=== PATIENT | female | born 1955 | race Caucasian/White ===

== ENCOUNTER 2024-12-14 20:25 | Emergency (ER) | payer OTHER ==
--- NOTE | 2024-12-14 20:44 | RAD REPORT ---
EXAM: CT Ct Stroke Brain Wo Cont HISTORY: STROKE ALERT COMPARISON: None TECHNIQUE: Multiple contiguous axial images were obtained for a CT of the brain without contrast. Sag ittal and coronal reformats were performed. One or more of the following dose reduction techniques were used: Automated exposure control, adjus tment of the mA and kV according to patient size, and iterative reconstruction. Unless otherwise specified, incidental findings do not require dedicated imaging follow-up. FINDINGS: No evidence of hydrocephalus, intracranial hemorrhage, or extra-axial fluid collection. Focus of encephalomalacia involving the peripheral right cerebellar folia. The brain is otherwise nor mal in morphology. The calvarium is intact. The visualized paranasal sinuses and mastoid air cells are essentially clear . IMPRESSION: Focus of encephalomalacia in the right peripheral cerebellar folia, suggesting remote ischemia. No ot her evidence of acute intracranial abnormality. THIS REPORT CONTAINS FINDINGS THAT MAY BE CRITICAL TO PATIENT CARE. The findings were verbally commun icated via telephone to Fredrick Oshea MD on 12/14/2024 8:41 PM.
[2024-12-14] MEDS ORDERED: LABETALOL 20 MG/4ML SYRINGE IV ONE (20:55)
[2024-12-14] MEDS ORDERED: TENECTEPLASE 50 MG/10 ML VIAL IV ONE (20:55)
--- NOTE | 2024-12-14 21:00 | RAD REPORT ---
EXAMINATION: CTA HEAD CLINICAL INDICATION: Female, 69 years old. weakness;Dizziness TECHNIQUE: Axial CT images were obtained through the head after intravenous contrast utilizing angiog raphic protocol with 3D post-processing (maximum intensity projection images, volume rendered images and/or shaded surface rendered images). One or more of the following dose reduction technique s were used: Automated exposure control, adjustment of the mA and/or kV according to patient size, and/or iterative reconstruction. Unless otherwise specified, incidental findings do not require dedic ated imaging follow-up. COMPARISON: Noncontrast head CT of the same day FINDINGS: ICA: The petrous, cavernous, and supraclinoid segments of the bilateral internal carotid arteries are normal. ANDRESSA: Anterior cerebral arteries are normal bilaterally. The anterior communicating artery is patent. MCA: Middle cerebral arteries are normal bilaterally. REPRINT SORTER: Posterior cerebral arteries are normal bilaterally. Vertebrobasilar: The vertebral arteries are patent. The basilar artery is normal in appearance. Right PICA is patent. Left PICA is not visualized, could be congenitally diminutive. 3D images confirm these findings. IMPRESSION: No evidence of large vessel occlusion or hemodynamically significant stenosis.
--- NOTE | 2024-12-14 21:11 | RAD REPORT ---
EXAMINATION: CT Neck Angio CLINICAL INDICATION: Female, 69 years old. [facility] MAIN weakness, dizziness, HTN Bed: TECHNIQUE: Axial CT images were obtained from the aortic arch to the skull base after intravenous con trast utilizing angiographic protocol. Multiplanar reformats, as well as 3D post-processing (maximum intensity projection images, volume rendered images and/or shaded surface rendered images) w ere generated and reviewed. One or more of the following dose reduction techniques were used: Automated exposure control, adjustment of the mA and/or kV according to patient size, and/or iterativ e reconstruction. Unless otherwise specified, incidental findings do not require dedicated imaging follow-up. COMPARISON: Noncontrast head CT of the same day FINDINGS: AORTA: The imaged aortic arch is normal. Normal three-vessel configuration of the arch. CCA: No artifact The common carotid arteries are patent and normal in caliber. ICA/ECA: Bilateral internal and external carotid arteries are patent. There is no significant interna l carotid artery stenosis. VERTEBRAL: The cervical vertebral arteries are patent to the skull base. Vertebral arteries are codom inant. SOFT TISSUE: No significant neck soft tissue abnormalities. The visualized lung apices are clear. 3D images confirm these findings. Anterior plating hardware spanning C4-C7 with adequate fusion across the endplates. IMPRESSION: No significant flow abnormality of the neck vessels is identified. NASCET criteria used to quantify ICA stenosis, with the following grading scheme: Mild 0-49% stenosis Moderate 50-69% stenosis Severe 70-99% stenosis Reference: [place] Symptomatic Carotid Endarterectomy Trial Collaborators; Angelina PADILLA, Judy DW, Emilio RB, et al. Beneficial effect of carotid endarterectomy in symptomatic patients with high-grade carotid stenosis. N Engl J Med. 1990 15;325(7):445-53.
[2024-12-14 21:22] LABS: Absolute Basophils 0.1 K/uL (0-0.5); Absolute Eosinophils 0.3 K/uL (0-0.5); Absolute Lymphocytes (CBC) 1.4 K/uL (0.7-4.9); Absolute Monocytes 0.5 K/uL (0.1-1.3); Absolute Neutrophil 2.5 K/uL (1.8-8.0); Basophils % 1.5 % (0-1.3); Eosinophils % 6.5 % (0-4.4); Hemoglobin 12.3 g/dL (12.0-15.0); Lymphocytes % 29.2 % (15.3-44.8); MCH 29.7 pg (27.0-35.0); MCHC 34.1 g/dL (32.0-36.0); MCV 87.2 fL (80-100); MPV 7.6 fL (7.6-11.3); Monocytes % 10.9 % (3.3-12.3); Neutrophils % 51.9 % (41.7-73.7); Nucleated Red Blood Cells % 0.2 % (0-0); Platelets 264 thou/uL (152-406); RBC Red Blood Cell Count 4.13 M/uL (3.86-4.86); Red Cell Distribution Width 13.5 % (12.1-15.2)
[2024-12-14 21:27] LABS: PT Prothrombin Time 11.2 SECONDS (9.4-12.5); PTT, Activated Partial Thromb 30.7 SECONDS (24.3-36.9); Protime INR 1.07
[2024-12-14 21:29] LABS: Anion Gap 8.5 mEq/L (5.0-15.0); Troponin High Sensitivity 4.7 pg/mL (<58.9)
[2024-12-14 21:30] LABS: Potassium 4.5 mEq/L (3.5-5.1)
[2024-12-14] MEDS ORDERED: ONDANSETRON 4 MG/2 ML VIAL ONE (21:42)
--- NOTE | 2024-12-14 21:44 | RAD REPORT ---
EXAMINATION: ONE VIEW CHEST XR CLINICAL INDICATION: Female, 69 years old.,dizzines TECHNIQUE: Frontal chest projection is submitted. Examination is limited by patient positioning and t echnique. COMPARISON: 04/15/2022 FINDINGS: The lungs are diffusely emphysematous but grossly clear. No pneumothorax or sizable effusion. The he art is normal in size. Mediastinal contours are unremarkable. IMPRESSION: No acute intrathoracic abnormalities.
--- NOTE | 2024-12-14 22:07 | ER ---
Nurse's Notes [facility] Name: Yennifer Magaña Age: 69 yrs Sex: Female : 1955 Arrival Date: 12/14/2024 Time: 20:25 Bed 2 Private MD: Diagnosis: Cerebral infarction, unspecified Presentation: 12/14 20:40 Chief complaint: Patient states: Sudden onset nausea, vomiting, weakness today at 1930. cm10 Coronavirus screen: Client denies travel out of the [place] in the last 14 days. Ebola Screen: Patient denies travel to an Ebola-affected area in the 21 days before illness onset. An acute neurological deficit is present. Pre-hospital glucose is not applicable to this patient. Initial Sepsis Screen: Does the patient meet any 2 criteria? No. Patient's initial sepsis screen is negative. Does the patient have a suspected source of infection? No. Patient's initial sepsis screen is negative. Risk Assessment: Do you want to hurt yourself or someone else? Patient reports no desire to harm self or others. Onset of symptoms was December 14, 2024 at 19:30. 20:40 Method Of Arrival: Wheelchair cm10 20:40 Acuity: SYLVAIN 2 cm10 Triage Assessment: 12/15 00:17 The onset of the patients symptoms was December 14, 2024 at 19:30. General: Appears bm8 uncomfortable, Behavior is anxious. Stroke Activation: Symptom onset < 3 hours Physician: ED Attending; Name: Dayo; Notified At: ; Arrived At: Physician: Mid-Level Provider; Name: ; Notified At: ; Arrived At: Physician: [not used]; Name: ; Notified At: ; Arrived At: Physician: [not used]; Name: ; Notified At: ; Arrived At: Physician: [not used]; Name: ; Notified At: ; Arrived At: Historical: - Allergies: 12/14 20:42 No Known Allergies; cm10 - Home Meds: 20:42 aspirin 81 mg Oral tablet,chewable [Active]; cm10 - PMHx: 20:42 Cerebrovascular accident; cm10 - Immunization history:: Adult Immunizations up to date. - Infectious Disease History:: Denies. - Social history:: Smoking status: Patient denies any tobacco usage or history of. - Family history:: not pertinent. - Hospitalizations: : No recent hospitalization is reported. Screenin:40 [facility] ED Fall Risk Assessment (Adult) History of falling in the last 3 months, bm8 including since admission No falls in past 3 months (0 pts) Confusion or Disorientation No (0 pts) Intoxicated or Sedated No (0 pts) Impaired Gait Yes (1 pt) Mobility Assist Device Used No (0 pt) Altered Elimination No (0 pt) Score/Fall Risk Level 0 - 2 = Low Risk Oriented to surroundings, Maintained a safe environment, Educated pt \T\ family on fall prevention, incl call for assistance when getting out of bed, Assessed \T\ reinforced patient's understanding of fall precautions, Hourly rounding (assess needs \T\ fall precautionary measures) done, Used ambulatory aids as needed (educated on \T\ assisted with), Used gait belt as appropriate. Abuse screen: Denies threats or abuse. Nutritional screening: No deficits noted. Tuberculosis screening: No symptoms or risk factors identified. Assessment: 20:40 VAN Scoring: Arm Drift: Patients demonstrates NO arm weakness. Patient is VAN Negative. bm8 Visual Disturbance: No visual disturbance noted. Aphasia: No aphasia noted. Neglect: No neglect noted. Mora Swallow Protocol Exclusion Criteria: Unable to remain alert for testing: No NPO for medical/surgical reason by provider order No Head-of-bed restricted <30 degrees Tracheostomy tube present No No thin liquids due to preexisting dysphagia/baseline modified diet thickened liquids No Exclusion Criteria Result: Proceed Brief Cognitive Screen What is your name? Normal, Where are you right now? Normal, What year is it? Normal. Oral Mechanism Examination Facial Symmetry: Normal, Motion: Normal, Lip Closure: Normal, Oral Mechanism Result: Normal. 3 oz Water Swallow Challenge: Pt able to drink all water without stopping, coughing, choking or throat clearing: Yes Result: ISAURO HOLLIDAY Notified: Fredrick Oshea MD. TNKase (Tenecteplase) Screening: Indications: Definite evidence of stroke, ischemic, embolic, or hypertensive: Yes. Treatment will start within 4.5 hours onset of symptoms: Yes. No evidence of intracranial hemorrhage or CT of head and no evidence of peripheral hemorrhage or recent CVA: Yes. Consent for thrombolytic therapy: Yes. General: Appears distressed, comfortable, slender, well groomed, well developed, well nourished, Behavior is cooperative, appropriate for age, anxious. Pain: Complains of pain in suprapubic area Pain currently is 3 out of 10 on a pain scale. Quality of pain is described as aching. 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 Full function Speech is normal, Facial symmetry appears normal, Pupils are PERRLA, Pupil Size: 3 mm Intact pt reports dizziness having to lean to one side for support and hx of CVA. Reports dizziness, weakness. Cardiovascular: No deficits noted. Heart tones S1 S2 present Capillary refill < 3 seconds in bilateral fingers Patient's skin is warm and dry. Respiratory: Airway is patent Respiratory effort is even, unlabored, Respiratory pattern is regular, symmetrical, Breath sounds are clear bilaterally. GI: No signs and/or symptoms were reported involving the gastrointestinal system. : Urine is clear, Reports inability to void. EENT: No signs and/or symptoms were reported regarding the EENT system. Derm: No signs and/or symptoms reported regarding the dermatologic system. Musculoskeletal: No signs and/or symptoms reported regarding the musculoskeletal system. 21:45 Reassessment: Patient appears in no apparent distress at this time. No changes from bm8 previously documented assessment. Patient and/or family updated on plan of care and expected duration. Pain level reassessed. Patient is alert, oriented x 3, equal unlabored respirations, skin warm/dry/pink. report mild nausea Patient denies pain at this time. Patient states feeling better. Patient states symptoms have improved. 22:00 Reassessment: Patient appears in no apparent distress at this time. No changes from bm8 previously documented assessment. Patient and/or family updated on plan of care and expected duration. Pain level reassessed. Patient is alert, oriented x 3, equal unlabored respirations, skin warm/dry/pink. Patient denies pain at this time. Patient states feeling better. Patient states symptoms have improved. 22:15 Reassessment: Patient appears in no apparent distress at this time. No changes from bm8 previously documented assessment. Patient and/or family updated on plan of care and expected duration. Pain level reassessed. Patient is alert, oriented x 3, equal unlabored respirations, skin warm/dry/pink. pt denies nausea at this time Patient denies pain at this time. Patient states feeling better. Patient states symptoms have improved. 22:30 Reassessment: Patient appears in no apparent distress at this time. No changes from bm8 previously documented assessment. Patient and/or family updated on plan of care and expected duration. Pain level reassessed. Patient is alert, oriented x 3, equal unlabored respirations, skin warm/dry/pink. Patient denies pain at this time. Patient states feeling better. Patient states symptoms have improved. 22:45 Reassessment: Patient appears in no apparent distress at this time. Patient and/or bm8 family updated on plan of care and expected duration. Pain level reassessed. Patient is alert, oriented x 3, equal unlabored respirations, skin warm/dry/pink. Patient denies pain at this time. Patient states feeling better. Patient states symptoms have improved. 23:00 Reassessment: Patient appears in no apparent distress at this time. No changes from bm8 previously documented assessment. Patient and/or family updated on plan of care and expected duration. Pain level reassessed. Patient is alert, oriented x 3, equal unlabored respirations, skin warm/dry/pink. Patient denies pain at this time. Patient states feeling better. Patient states symptoms have improved. 23:15 Reassessment: Patient appears in no apparent distress at this time. No changes from bm8 previously documented assessment. Patient and/or family updated on plan of care and expected duration. Pain level reassessed. Patient is alert, oriented x 3, equal unlabored respirations, skin warm/dry/pink. Patient denies pain at this time. Patient states feeling better. Patient states symptoms have improved. 23:39 Reassessment: report to ARIADNE [employer] \Prashanth\ Ta WALLACE. bm8 23:45 Reassessment: Patient appears in no apparent distress at this time. No changes from bm8 previously documented assessment. Patient and/or family updated on plan of care and expected duration. Pain level reassessed. Patient is alert, oriented x 3, equal unlabored respirations, skin warm/dry/pink. Patient denies pain at this time. Patient states feeling better. Patient states symptoms have improved. 12/15 00:12 Reassessment: Patient appears in no apparent distress at this time. No changes from bm8 previously documented assessment. Patient and/or family updated on plan of care and expected duration. Pain level reassessed. Patient is alert, oriented x 3, equal unlabored respirations, skin warm/dry/pink. Patient denies pain at this time. Patient states feeling better. Patient states symptoms have improved. General: Appears in no apparent distress. comfortable, Behavior is calm, cooperative, appropriate for age. Pain: Denies pain. Neuro: No deficits noted. 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 Full function Speech is normal, Facial symmetry appears normal, Pupils are PERRLA, Pupil Size: 3 mm Intact Denies dizziness, difficulty swallowing, paresthesias numbness headache. Cardiovascular: No deficits noted. Respiratory: No deficits noted. GI: No deficits noted. Patient currently denies nausea. : No deficits noted. EENT: No deficits noted. Derm: No deficits noted. Musculoskeletal: No deficits noted. Vital Signs: 12/14 20:40 BP 206 / 96; Pulse 70; Resp 18; Temp 96.6; Pulse Ox 100% ; cm10 21:10 BP 179 / 94; Pulse 71; Resp 18; Temp 97; Pulse Ox 100% ; Weight 72.57 kg; Pain 3/10; bm8 21:30 BP 160 / 83; Pulse 65; Resp 17; Temp 97; Pulse Ox 98% ; Pain 0/10; bm8 21:45 BP 157 / 81; Pulse 70; Resp 18; Temp 97; Pulse Ox 99% ; Pain 0/10; bm8 22:00 BP 149 / 71; Pulse 74; Resp 18; Temp 97; Pulse Ox 92% ; Pain 0/10; bm8 22:15 BP 148 / 71; Pulse 76; Resp 18; Temp 97; Pulse Ox 91% ; Pain 0/10; bm8 22:30 BP 145 / 77; Pulse 83; Resp 17; Temp 97; Pulse Ox 92% ; Pain 0/10; bm8 22:45 BP 148 / 81; Pulse 76; Resp 18; Temp 97; Pulse Ox 94% ; Pain 0/10; bm8 23:00 BP 168 / 74; Pulse 79; Resp 16; Temp 97; Pulse Ox 94% ; Pain 0/10; bm8 23:15 BP 137 / 68; Pulse 79; Resp 17; Temp 97; Pulse Ox 93% ; Pain 0/10; bm8 23:45 BP 137 / 69; Pulse 85; Resp 18; Temp 97; Pulse Ox 93% ; Pain 0/10; bm8 12/15 00:12 BP 137 / 72; Pulse 77; Resp 18; Temp 97; Pulse Ox 96% ; Pain 0/10; bm8 21:10 Pain Scale: Adult bm8 21:30 Pain Scale: Adult bm8 21:45 Pain Scale: Adult bm8 22:00 Pain Scale: Adult bm8 22:15 Pain Scale: Adult bm8 22:30 Pain Scale: Adult bm8 22:45 Pain Scale: Adult bm8 23:00 Pain Scale: Adult bm8 23:15 Pain Scale: Adult bm8 23:45 Pain Scale: Adult bm8 12/15 00:12 Pain Scale: Adult bm8 [place] Coma Score: 12/14 20:40 Eye Response: spontaneous(4). Motor Response: obeys commands(6). Verbal Response: bm8 oriented(5). Total: 15. 21:45 Eye Response: spontaneous(4). Motor Response: obeys commands(6). Verbal Response: bm8 oriented(5). Total: 15. 22:00 Eye Response: spontaneous(4). Motor Response: obeys commands(6). Verbal Response: bm8 oriented(5). Total: 15. 22:15 Eye Response: spontaneous(4). Motor Response: obeys commands(6). Verbal Response: bm8 oriented(5). Total: 15. 22:30 Eye Response: spontaneous(4). Motor Response: obeys commands(6). Verbal Response: bm8 oriented(5). Total: 15. 22:45 Eye Response: spontaneous(4). Motor Response: obeys commands(6). Verbal Response: bm8 oriented(5). Total: 15. 23:00 Eye Response: spontaneous(4). Motor Response: obeys commands(6). Verbal Response: bm8 oriented(5). Total: 15. 23:15 Eye Response: spontaneous(4). Motor Response: obeys commands(6). Verbal Response: bm8 oriented(5). Total: 15. 23:45 Eye Response: spontaneous(4). Motor Response: obeys commands(6). Verbal Response: bm8 oriented(5). Total: 15. 12/15 00:12 Eye Response: spontaneous(4). Motor Response: obeys commands(6). Verbal Response: bm8 oriented(5). Total: 15. NIH Stroke Scale Scores: 12/14 20:40 NIHSS Score: 0 bm8 20:47 NIHSS Score: 0 rn 21:45 NIHSS Score: 0 bm8 22:00 NIHSS Score: 0 bm8 22:15 NIHSS Score: 0 bm8 22:30 NIHSS Score: 0 bm8 22:45 NIHSS Score: 0 bm8 23:00 NIHSS Score: 0 bm8 23:15 NIHSS Score: 0 bm8 23:45 NIHSS Score: 0 bm8 12/15 00:12 NIHSS Score: 0 bm8 ED Course: 12/14 20:28 Patient arrived in ED. rn 20:28 Fredrick Oshea MD is Attending Physician. rn 20:38 CT Stroke Brain w/o Contrast In Process Unspecified. EDMS 20:40 Initial lab(s) drawn, by me, sent to lab. Inserted saline lock: 20 gauge in right cm10 antecubital area, using aseptic technique. Blood collected. Flushed with 10 mL NS. 20:40 Patient has correct armband on for positive identification. Bed in low position. Call bm8 light in reach. Side rails up X2. Adult w/ patient. Client placed on continuous cardiac and pulse oximetry monitoring. NIBP monitoring applied. 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 Pulse ox on. NIBP on. Door closed. Noise minimized. Warm blanket given. Pillow given. Verbal reassurance given. Head of bed elevated. 20:42 Triage completed. cm10 20:48 CT Head Angio In Process Unspecified. EDMS 20:48 CT Neck Angio In Process Unspecified. EDMS 21:02 Marshall Alvarez, RN is Primary Nurse. bm8 21:12 Tavares cath inserted, using sterile technique, 16 Fr., by sd, balloon inflated, to bm8 gravity drainage, Patient tolerated well. 21:30 No provider procedures requiring assistance completed. Inserted saline lock: 18 gauge bm8 in left antecubital area, using aseptic technique. Blood collected. Flushed with 10 mL NS. Patient maintains SpO2 saturation greater than 95% on room air. 21:30 Provided Education on: TNK education.. bm8 21:41 Stroke CXR 1 View In Process Unspecified. EDMS 21:52 Attempted to call [facility] for transfer, call was forwarded to a voicemail. Provider rv1 and Charge Nurse notified. 21:56 Initiated transfer with Magi at [facility]. rv1 22:06 Mindy Redd MD is Hospitalizing Provider. rn 22:18 Doc to Doc with Neuro at [facility]. rv1 22:19 EKG done, by ED staff, reviewed by Fredrick Oshea MD. bm8 22:[address] Cain to [facility] ICU. rv1 23:46 Taya with [employer] gave 15-20 min ETA. rv1 02 00:12 Patient transferred, IV remains in place. bm8 00:18 Arm band placed on right wrist. bm8 Administered Medications: 02 20:59 Drug: Labetalol IV 5 mg IV at calculated rate once Route: IV; Rate: calculated rate; bm8 Site: right antecubital; 21:48 Follow up: Response: No adverse reaction; IV Status: Completed infusion; IV Intake: 5ml bm8 21:14 Drug: TNK FOR STROKE - Tenecteplase IV (Administer 10 ml NS flush BEFORE and bm8 AFTER tenecteplase) 0.25 mg/kg IV at per protocol once; 0.25mg/kg, MAX DOSE 25 mg, IVP over 5 seconds {Co-Signature: al5 (Isadora Young RN).} Route: IV; Rate: per protocol; Site: left antecubital; 22:18 Follow up: Response: No adverse reaction; IV Status: Completed infusion; IV Intake: bm8 3.6ml 21:45 Drug: Ondansetron IVP 4 mg IVP once; over 2 minutes Route: IVP; Site: left antecubital; bm8 22:18 Follow up: Response: No adverse reaction bm8 22:18 Drug: foLIC Acid IVPB 1 mg IVPB once Route: IVPB; Site: left antecubital; bm8 23:16 Follow up: Response: No adverse reaction; IV Status: Completed infusion; IV Intake: [id number] Medication: 20:40 VIS not applicable for this client. bm8 Point of Care Testing: Blood Glucose: 21:02 Blood Glucose: 87 mg/dL; bm8 Ranges: Intake: 21:48 IV: 5ml; Total: 5ml. bm8 22:18 IV: 4ml; Total: 9ml. bm8 23:16 IV: 10ml; Total: 19ml. bm8 Outcome: 22:07 Decision to Hospitalize by Provider. rn 22:27 ER care complete, transfer ordered by . ariadne 12/15 00:12 Transferred by ground EMS to [facility], Transfer form completed. X-rays sent bm8 w/ patient. Condition: stable Instructed on the need for transfer, Demonstrated understanding of instructions, follow-up care, medications, 00:18 Patient left the ED. bm8 NIH Stroke Scale - NIH Stroke Score Date: 12/14/2024 Time: 20:40 Total Score = 0 10. Dysarthria (speech clarity - read or repeat words) - 0(Normal) 11. Extinction and Inattention (visual/tactile/auditory/spatial/personal) - 0(No abnormality) 1a. Level of Consciousness (LOC) - 0(Alert) 1b. Level of Consciousness (LOC) (Month \T\ Age) - 0(Both) 1c. LOC Commands (Open \T\ Closes Eyes/Certified Medicine Aide) - 0(Both) 2. Best Gaze (Lateral Gaze Paresis) - 0(Normal) 3. Visual Field Loss - 0(No visual loss) 4. Facial Palsy - 0(Normal) 5a. Left Arm: Motor (10-second hold) - 0(No drift) 5b. Right Arm: Motor (10-second hold) - 0(No drift) 6a. Left Leg: Motor (5-second hold - always test supine) - 0(No drift) 6b. Right Leg: Motor (5-second hold - always test supine) - 0(No drift) 7. Limb Ataxia (finger/nose \T\ heel/cabrera - test with eyes open) - 0(Absent) 8. Sensory Loss (pinprick arms/legs/face) - 0(Normal) 9. Best Language: Aphasia (description/naming/reading) - 0(No aphasia) Initials: 8 NIH Stroke Scale - NIH Stroke Score Date: 12/14/2024 Time: 20:47 Total Score = 0 10. Dysarthria (speech clarity - read or repeat words) - 0(Normal) 11. Extinction and Inattention (visual/tactile/auditory/spatial/personal) - 0(No abnormality) 1a. Level of Consciousness (LOC) - 0(Alert) 1b. Level of Consciousness (LOC) (Month \T\ Age) - 0(Both) 1c. LOC Commands (Open \T\ Closes Eyes/Certified Medicine Aide) - 0(Both) 2. Best Gaze (Lateral Gaze Paresis) - 0(Normal) 3. Visual Field Loss - 0(No visual loss) 4. Facial Palsy - 0(Normal) 5a. Left Arm: Motor (10-second hold) - 0(No drift) 5b. Right Arm: Motor (10-second hold) - 0(No drift) 6a. Left Leg: Motor (5-second hold - always test supine) - 0(No drift) 6b. Right Leg: Motor (5-second hold - always test supine) - 0(No drift) 7. Limb Ataxia (finger/nose \T\ heel/cabrera - test with eyes open) - 0(Absent) 8. Sensory Loss (pinprick arms/legs/face) - 0(Normal) 9. Best Language: Aphasia (description/naming/reading) - 0(No aphasia) Initials: ariadne NIH Stroke Scale - NIH Stroke Score Date: 12/14/2024 Time: 21:45 Total Score = 0 10. Dysarthria (speech clarity - read or repeat words) - 0(Normal) 11. Extinction and Inattention (visual/tactile/auditory/spatial/personal) - 0(No abnormality) 1a. Level of Consciousness (LOC) - 0(Alert) 1b. Level of Consciousness (LOC) (Month \T\ Age) - 0(Both) 1c. LOC Commands (Open \T\ Closes Eyes/Certified Medicine Aide) - 0(Both) 2. Best Gaze (Lateral Gaze Paresis) - 0(Normal) 3. Visual Field Loss - 0(No visual loss) 4. Facial Palsy - 0(Normal) 5a. Left Arm: Motor (10-second hold) - 0(No drift) 5b. Right Arm: Motor (10-second hold) - 0(No drift) 6a. Left Leg: Motor (5-second hold - always test supine) - 0(No drift) 6b. Right Leg: Motor (5-second hold - always test supine) - 0(No drift) 7. Limb Ataxia (finger/nose \T\ heel/cabrera - test with eyes open) - 0(Absent) 8. Sensory Loss (pinprick arms/legs/face) - 0(Normal) 9. Best Language: Aphasia (description/naming/reading) - 0(No aphasia) Initials: [facility] NIH Stroke Scale - NIH Stroke Score Date: 12/14/2024 Time: 22:00 Total Score = 0 10. Dysarthria (speech clarity - read or repeat words) - 0(Normal) 11. Extinction and Inattention (visual/tactile/auditory/spatial/personal) - 0(No abnormality) 1a. Level of Consciousness (LOC) - 0(Alert) 1b. Level of Consciousness (LOC) (Month \T\ Age) - 0(Both) 1c. LOC Commands (Open \T\ Closes Eyes/Certified Medicine Aide) - 0(Both) 2. Best Gaze (Lateral Gaze Paresis) - 0(Normal) 3. Visual Field Loss - 0(No visual loss) 4. Facial Palsy - 0(Normal) 5a. Left Arm: Motor (10-second hold) - 0(No drift) 5b. Right Arm: Motor (10-second hold) - 0(No drift) 6a. Left Leg: Motor (5-second hold - always test supine) - 0(No drift) 6b. Right Leg: Motor (5-second hold - always test supine) - 0(No drift) 7. Limb Ataxia (finger/nose \T\ heel/cabrera - test with eyes open) - 0(Absent) 8. Sensory Loss (pinprick arms/legs/face) - 0(Normal) 9. Best Language: Aphasia (description/naming/reading) - 0(No aphasia) Initials: [facility] NIH Stroke Scale - NIH Stroke Score Date: 12/14/2024 Time: 22:15 Total Score = 0 10. Dysarthria (speech clarity - read or repeat words) - 0(Normal) 11. Extinction and Inattention (visual/tactile/auditory/spatial/personal) - 0(No abnormality) 1a. Level of Consciousness (LOC) - 0(Alert) 1b. Level of Consciousness (LOC) (Month \T\ Age) - 0(Both) 1c. LOC Commands (Open \T\ Closes Eyes/Certified Medicine Aide) - 0(Both) 2. Best Gaze (Lateral Gaze Paresis) - 0(Normal) 3. Visual Field Loss - 0(No visual loss) 4. Facial Palsy - 0(Normal) 5a. Left Arm: Motor (10-second hold) - 0(No drift) 5b. Right Arm: Motor (10-second hold) - 0(No drift) 6a. Left Leg: Motor (5-second hold - always test supine) - 0(No drift) 6b. Right Leg: Motor (5-second hold - always test supine) - 0(No drift) 7. Limb Ataxia (finger/nose \T\ heel/cabrera - test with eyes open) - 0(Absent) 8. Sensory Loss (pinprick arms/legs/face) - 0(Normal) 9. Best Language: Aphasia (description/naming/reading) - 0(No aphasia) Initials: 8 NIH Stroke Scale - NIH Stroke Score Date: 12/14/2024 Time: 22:30 Total Score = 0 10. Dysarthria (speech clarity - read or repeat words) - 0(Normal) 11. Extinction and Inattention (visual/tactile/auditory/spatial/personal) - 0(No abnormality) 1a. Level of Consciousness (LOC) - 0(Alert) 1b. Level of Consciousness (LOC) (Month \T\ Age) - 0(Both) 1c. LOC Commands (Open \T\ Closes Eyes/Certified Medicine Aide) - 0(Both) 2. Best Gaze (Lateral Gaze Paresis) - 0(Normal) 3. Visual Field Loss - 0(No visual loss) 4. Facial Palsy - 0(Normal) 5a. Left Arm: Motor (10-second hold) - 0(No drift) 5b. Right Arm: Motor (10-second hold) - 0(No drift) 6a. Left Leg: Motor (5-second hold - always test supine) - 0(No drift) 6b. Right Leg: Motor (5-second hold - always test supine) - 0(No drift) 7. Limb Ataxia (finger/nose \T\ heel/cabrera - test with eyes open) - 0(Absent) 8. Sensory Loss (pinprick arms/legs/face) - 0(Normal) 9. Best Language: Aphasia (description/naming/reading) - 0(No aphasia) Initials: 8 NIH Stroke Scale - NIH Stroke Score Date: 12/14/2024 Time: 22:45 Total Score = 0 10. Dysarthria (speech clarity - read or repeat words) - 0(Normal) 11. Extinction and Inattention (visual/tactile/auditory/spatial/personal) - 0(No abnormality) 1a. Level of Consciousness (LOC) - 0(Alert) 1b. Level of Consciousness (LOC) (Month \T\ Age) - 0(Both) 1c. LOC Commands (Open \T\ Closes Eyes/Certified Medicine Aide) - 0(Both) 2. Best Gaze (Lateral Gaze Paresis) - 0(Normal) 3. Visual Field Loss - 0(No visual loss) 4. Facial Palsy - 0(Normal) 5a. Left Arm: Motor (10-second hold) - 0(No drift) 5b. Right Arm: Motor (10-second hold) - 0(No drift) 6a. Left Leg: Motor (5-second hold - always test supine) - 0(No drift) 6b. Right Leg: Motor (5-second hold - always test supine) - 0(No drift) 7. Limb Ataxia (finger/nose \T\ heel/cabrera - test with eyes open) - 0(Absent) 8. Sensory Loss (pinprick arms/legs/face) - 0(Normal) 9. Best Language: Aphasia (description/naming/reading) - 0(No aphasia) Initials: bm8 NIH Stroke Scale - NIH Stroke Score Date: 12/14/2024 Time: 23:00 Total Score = 0 10. Dysarthria (speech clarity - read or repeat words) - 0(Normal) 11. Extinction and Inattention (visual/tactile/auditory/spatial/personal) - 0(No abnormality) 1a. Level of Consciousness (LOC) - 0(Alert) 1b. Level of Consciousness (LOC) (Month \T\ Age) - 0(Both) 1c. LOC Commands (Open \T\ Closes Eyes/Certified Medicine Aide) - 0(Both) 2. Best Gaze (Lateral Gaze Paresis) - 0(Normal) 3. Visual Field Loss - 0(No visual loss) 4. Facial Palsy - 0(Normal) 5a. Left Arm: Motor (10-second hold) - 0(No drift) 5b. Right Arm: Motor (10-second hold) - 0(No drift) 6a. Left Leg: Motor (5-second hold - always test supine) - 0(No drift) 6b. Right Leg: Motor (5-second hold - always test supine) - 0(No drift) 7. Limb Ataxia (finger/nose \T\ heel/cabrera - test with eyes open) - 0(Absent) 8. Sensory Loss (pinprick arms/legs/face) - 0(Normal) 9. Best Language: Aphasia (description/naming/reading) - 0(No aphasia) Initials: [facility] NIH Stroke Scale - NIH Stroke Score Date: 12/14/2024 Time: 23:15 Total Score = 0 10. Dysarthria (speech clarity - read or repeat words) - 0(Normal) 11. Extinction and Inattention (visual/tactile/auditory/spatial/personal) - 0(No abnormality) 1a. Level of Consciousness (LOC) - 0(Alert) 1b. Level of Consciousness (LOC) (Month \T\ Age) - 0(Both) 1c. LOC Commands (Open \T\ Closes Eyes/Certified Medicine Aide) - 0(Both) 2. Best Gaze (Lateral Gaze Paresis) - 0(Normal) 3. Visual Field Loss - 0(No visual loss) 4. Facial Palsy - 0(Normal) 5a. Left Arm: Motor (10-second hold) - 0(No drift) 5b. Right Arm: Motor (10-second hold) - 0(No drift) 6a. Left Leg: Motor (5-second hold - always test supine) - 0(No drift) 6b. Right Leg: Motor (5-second hold - always test supine) - 0(No drift) 7. Limb Ataxia (finger/nose \T\ heel/cabrera - test with eyes open) - 0(Absent) 8. Sensory Loss (pinprick arms/legs/face) - 0(Normal) 9. Best Language: Aphasia (description/naming/reading) - 0(No aphasia) Initials: [facility] NIH Stroke Scale - NIH Stroke Score Date: 12/14/2024 Time: 23:45 Total Score = 0 10. Dysarthria (speech clarity - read or repeat words) - 0(Normal) 11. Extinction and Inattention (visual/tactile/auditory/spatial/personal) - 0(No abnormality) 1a. Level of Consciousness (LOC) - 0(Alert) 1b. Level of Consciousness (LOC) (Month \T\ Age) - 0(Both) 1c. LOC Commands (Open \T\ Closes Eyes/Certified Medicine Aide) - 0(Both) 2. Best Gaze (Lateral Gaze Paresis) - 0(Normal) 3. Visual Field Loss - 0(No visual loss) 4. Facial Palsy - 0(Normal) 5a. Left Arm: Motor (10-second hold) - 0(No drift) 5b. Right Arm: Motor (10-second hold) - 0(No drift) 6a. Left Leg: Motor (5-second hold - always test supine) - 0(No drift) 6b. Right Leg: Motor (5-second hold - always test supine) - 0(No drift) 7. Limb Ataxia (finger/nose \T\ heel/cabrera - test with eyes open) - 0(Absent) 8. Sensory Loss (pinprick arms/legs/face) - 0(Normal) 9. Best Language: Aphasia (description/naming/reading) - 0(No aphasia) Initials: [email or web address] NIH Stroke Scale - NIH Stroke Score Date: 12/15/2024 Time: 00:12 Total Score = 0 10. Dysarthria (speech clarity - read or repeat words) - 0(Normal) 11. Extinction and Inattention (visual/tactile/auditory/spatial/personal) - 0(No abnormality) 1a. Level of Consciousness (LOC) - 0(Alert) 1b. Level of Consciousness (LOC) (Month \T\ Age) - 0(Both) 1c. LOC Commands (Open \T\ Closes Eyes/Certified Medicine Aide) - 0(Both) 2. Best Gaze (Lateral Gaze Paresis) - 0(Normal) 3. Visual Field Loss - 0(No visual loss) 4. Facial Palsy - 0(Normal) 5a. Left Arm: Motor (10-second hold) - 0(No drift) 5b. Right Arm: Motor (10-second hold) - 0(No drift) 6a. Left Leg: Motor (5-second hold - always test supine) - 0(No drift) 6b. Right Leg: Motor (5-second hold - always test supine) - 0(No drift) 7. Limb Ataxia (finger/nose \T\ heel/cabrera - test with eyes open) - 0(Absent) 8. Sensory Loss (pinprick arms/legs/face) - 0(Normal) 9. Best Language: Aphasia (description/naming/reading) - 0(No aphasia) Initials: 8 Signatures: Dispatcher [employer] EDFredrick Castillo MD MD rn Villegas, Rebecca [email or web address] Gissell Shi RN RN [id number] Marshall Alvarez RN RN [id number] Isadora Young RN al5 Corrections: (The following items were deleted from the chart) 12/14 21:30 21:03 BP 172 / 94; Pulse 71bpm; Resp 18bpm; Pulse Ox 100%; Temp 97F; 72.57 kg; bm8 Pain 3/10, Adult; bm8 21:36 20:40 BP 160 / 83; Pulse 65bpm; Resp 17bpm; Pulse Ox 98%; Temp 97F; Pain 0/10, bm8 Adult; bm8 21:36 21:30 BP 172 / 94; Pulse 71bpm; Resp 18bpm; Pulse Ox 100%; Temp 97F; 72.57 kg; bm8 Pain 3/10, Adult; bm8
--- NOTE | 2024-12-14 22:07 | EDPHYS ---
Physician Documentation [facility] Name: Yennifer Magaña Age: 69 yrs Sex: Female : 1955 Arrival Date: 12/14/2024 Time: 20:25 Bed 2 Private MD: ED Physician Fredrick Oshea HPI: 12/14 21:15 This 69 yrs old Female presents to ER via Wheelchair with complaints of S/S of Possible rn Stroke. 21:15 The patient's problem is reported as difficulty walking, weakness. Onset: The rn symptoms/episode began/occurred at 19:30. Duration: This was a single incident. Context: symptoms became apparent. The symptoms are alleviated by nothing. The symptoms are aggravated by standing, walking. Severity of symptoms: At their worst the symptoms were moderate in the emergency department the symptoms are unchanged. The patient has experienced a previous episode. Patient reports sudden onset at 730 with difficulty walking, feeling like she was falling to the left, associated with nausea and vomiting. Has had a previous cerebellar stroke in the past. This stroke was not in the last 3 months. Denies any recent illness. No fever or chills. Prior to the sudden onset of symptoms was completely normal. Required a to get out of vehicle and could not walk. No focal weakness. No speech trouble.. Historical: - Allergies: 20:42 No Known Allergies; cm10 - Home Meds: 20:42 aspirin 81 mg Oral tablet,chewable [Active]; cm10 - PMHx: 20:42 Cerebrovascular accident; cm10 - Immunization history:: Adult Immunizations up to date. - Infectious Disease History:: Denies. - Social history:: Smoking status: Patient denies any tobacco usage or history of. - Family history:: not pertinent. - Hospitalizations: : No recent hospitalization is reported. ROS: 21:15 Constitutional: Negative for fever, chills, and weight loss, Eyes: Negative for injury, rn pain, redness, and discharge, Neck: Negative for injury, pain, and swelling, Cardiovascular: Negative for chest pain, palpitations, and edema, Respiratory: Negative for shortness of breath, cough, wheezing, and pleuritic chest pain, Abdomen/GI: Positive for nausea and vomiting, negative for abdominal pain MS/Extremity: Negative for injury and deformity, Skin: Negative for injury, rash, and discoloration, Neuro: Positive for generalized weakness, initially reported posterior headache to triage nurse. No seizure Exam: 21:15 Constitutional: This is a well developed, well nourished patient who is awake, alert, rn slow to respond, in wheelchair Head/Face: Normocephalic, atraumatic. ENT: Moist mucous membranes Cardiovascular: Regular rate and rhythm. No pulse deficits. Respiratory: no increased work of breathing, no retractions or nasal flaring. Abdomen/GI: Soft, non-tender MS/ Extremity: Pulses equal, no cyanosis. Neurovascular intact. Full, normal range of motion. Equal circumference. Neuro: Awake and alert, GCS 15, oriented to person, place, time, and situation. Cranial nerves II-XII grossly intact. Motor strength 4/5 in all extremities. Sensory grossly intact. Exhibits truncal ataxia and leaning to the left in the wheelchair, unable to sit up without assistance on her own 22:46 ECG was reviewed by the Attending Physician. rn Vital Signs: 20:40 BP 206 / 96; Pulse 70; Resp 18; Temp 96.6; Pulse Ox 100% ; cm10 21:10 BP 179 / 94; Pulse 71; Resp 18; Temp 97; Pulse Ox 100% ; Weight 72.57 kg; Pain 3/10; bm8 21:30 BP 160 / 83; Pulse 65; Resp 17; Temp 97; Pulse Ox 98% ; Pain 0/10; bm8 21:45 BP 157 / 81; Pulse 70; Resp 18; Temp 97; Pulse Ox 99% ; Pain 0/10; bm8 22:00 BP 149 / 71; Pulse 74; Resp 18; Temp 97; Pulse Ox 92% ; Pain 0/10; bm8 22:15 BP 148 / 71; Pulse 76; Resp 18; Temp 97; Pulse Ox 91% ; Pain 0/10; bm8 22:30 BP 145 / 77; Pulse 83; Resp 17; Temp 97; Pulse Ox 92% ; Pain 0/10; bm8 22:45 BP 148 / 81; Pulse 76; Resp 18; Temp 97; Pulse Ox 94% ; Pain 0/10; bm8 23:00 BP 168 / 74; Pulse 79; Resp 16; Temp 97; Pulse Ox 94% ; Pain 0/10; bm8 23:15 BP 137 / 68; Pulse 79; Resp 17; Temp 97; Pulse Ox 93% ; Pain 0/10; bm8 23:45 BP 137 / 69; Pulse 85; Resp 18; Temp 97; Pulse Ox 93% ; Pain 0/10; bm8 12/15 00:12 BP 137 / 72; Pulse 77; Resp 18; Temp 97; Pulse Ox 96% ; Pain 0/10; bm8 21:10 Pain Scale: Adult bm8 21:30 Pain Scale: Adult bm8 21:45 Pain Scale: Adult bm8 22:00 Pain Scale: Adult bm8 22:15 Pain Scale: Adult bm8 22:30 Pain Scale: Adult bm8 22:45 Pain Scale: Adult bm8 23:00 Pain Scale: Adult bm8 23:15 Pain Scale: Adult bm8 23:45 Pain Scale: Adult bm8 12/15 00:12 Pain Scale: Adult bm8 NIH Stroke Scale Scores: 12/14 20:40 NIHSS Score: 0 bm8 20:47 NIHSS Score: 0 rn 21:45 NIHSS Score: 0 bm8 22:00 NIHSS Score: 0 bm8 22:15 NIHSS Score: 0 bm8 22:30 NIHSS Score: 0 bm8 22:45 NIHSS Score: 0 bm8 23:00 NIHSS Score: 0 bm8 23:15 NIHSS Score: 0 bm8 23:45 NIHSS Score: 0 bm8 12/15 00:12 NIHSS Score: 0 bm8 [place] Score: 12/14 20:40 Eye Response: spontaneous(4). Motor Response: obeys commands(6). Verbal Response: bm8 oriented(5). Total: 15. 21:45 Eye Response: spontaneous(4). Motor Response: obeys commands(6). Verbal Response: bm8 oriented(5). Total: 15. 22:00 Eye Response: spontaneous(4). Motor Response: obeys commands(6). Verbal Response: bm8 oriented(5). Total: 15. 22:15 Eye Response: spontaneous(4). Motor Response: obeys commands(6). Verbal Response: bm8 oriented(5). Total: 15. 22:30 Eye Response: spontaneous(4). Motor Response: obeys commands(6). Verbal Response: bm8 oriented(5). Total: 15. 22:45 Eye Response: spontaneous(4). Motor Response: obeys commands(6). Verbal Response: bm8 oriented(5). Total: 15. 23:00 Eye Response: spontaneous(4). Motor Response: obeys commands(6). Verbal Response: bm8 oriented(5). Total: 15. 23:15 Eye Response: spontaneous(4). Motor Response: obeys commands(6). Verbal Response: bm8 oriented(5). Total: 15. 23:45 Eye Response: spontaneous(4). Motor Response: obeys commands(6). Verbal Response: bm8 oriented(5). Total: 15. 06 00:12 Eye Response: spontaneous(4). Motor Response: obeys commands(6). Verbal Response: bm8 oriented(5). Total: 15. MDM: 12/14 20:45 ED course: Patient with acute onset of feeling unsteady, dizzy, unable to walk or hold rn herself up. Onset was 7:30 PM. Has a history of cerebellar infarct in the past. Patient reports feels like she is falling to the left since this started and was coincided with sudden onset of nausea and vomiting. CT head negative for acute bleed per Dr. Zhou. Discussed case with Dr. Patterson, recommends TNKase administration given high likelihood of posterior stroke and acute infarct. Discussed with patient, is getting CT angiograms at this time and when returns to ER if she agrees we will give TNKase.. 20:46 Medical Screening Exam initiated rn 20:57 ED course: Labetalol ordered for blood pressure 206/96. Repeat blood pressure is rn 184/92. Patient consented for TNK administration, friend and family in the room and they both agree with her to receive TNKase. She understands risks of bleeding and does not have any contraindications at this time. Strongest blood thinner she takes is aspirin, no recent surgery, did have a heart cath 2 weeks ago but was inguinal access.. 21:15 ED course: Patient reports having difficulty urinating, will have to catheter. Patient rn states the difficult urination happened last time she had a stroke as well and this feels the same to her. We have been waiting on blood pressure control for administration of TNKase. 22:04 Differential diagnosis: CVA, TIA, metabolic disorder. TNKase (Tenecteplase) Screening:. rn Data reviewed: vital signs, nurses notes, lab test result(s), EKG, radiologic studies, CT scan, and as a result, I will admit patient. Consideration of Admission/Observation Patient was admitted/placed on observation. Escalation of care including admission/observation considered. Counseling: I had a detailed discussion with the patient and/or guardian regarding the historical points, exam findings, and any diagnostic results supporting the discharge/admit diagnosis, lab results, radiology results, the need for further work-up and treatment in the hospital, the need to transfer to another facility, No ICU beds here. ED course: Will initiate transfer given no ICU availability here and patient status post TNKase with likely posterior infarct. Patient is feeling better and happy that we give the TNK. 22:26 ED course: [facility] not able to accommodate patient. Patient accepted for transfer to rn [facility].. 12/14 20:29 Order name: Basic Metabolic Panel; Complete Time: : rn 12/14 20:29 Order name: CBC with Diff; Complete Time: : rn 12/14 20:29 Order name: High Sensitivity Troponin; Complete Time: : rn 12/14 20:29 Order name: Protime (+inr); Complete Time: : rn 12/14 20:29 Order name: Ptt, Activated; Complete Time: : rn 12/14 20:44 Order name: glucometer results - FOR PT WITH NO ID; Complete Time: 21:31 cm10 12/14 20:29 Order name: CT Head Angio; Complete Time: : rn 12/14 20:29 Order name: CT Neck Angio; Complete Time: : rn 12/14 20:29 Order name: CT Stroke Brain w/o Contrast; Complete Time: : rn 12/14 20:29 Order name: Stroke CXR 1 View; Complete Time: 21:52 rn 12/14 20:29 Order name: EKG; Complete Time: 20: rn 12/14 20:29 Order name: Accucheck; Complete Time: 21: rn 12/14 20:29 Order name: Cardiac monitoring; Complete Time: 21: rn 12/14 20:29 Order name: EKG - Nurse/Tech; Complete Time: 22:18 rn 12/14 20:29 Order name: IV Saline Lock; Complete Time: : rn 12/14 20:29 Order name: Labs collected and sent; Complete Time: : rn 12/14 20:29 Order name: NPO; Complete Time: rn 12/14 20:29 Order name: O2 Per Protocol; Complete Time: : rn 12/14 20:29 Order name: O2 Sat Monitoring; Complete Time: rn 12/14 20:29 Order name: Stroke Swallow Screen; Complete Time: rn EC:46 Rate is 74 beats/min. Rhythm is regular. QRS [place] is Normal. [place] interval is normal. QRS rn interval is normal. QT interval is normal. No Q waves. T waves are Normal. No ST changes noted. Clinical impression: Normal ECG. Interpreted by me. Reviewed by me. Administered Medications: 20:59 Drug: Labetalol IV 5 mg IV at calculated rate once Route: IV; Rate: calculated rate; bm8 Site: right antecubital; 21:48 Follow up: Response: No adverse reaction; IV Status: Completed infusion; IV Intake: 5ml bm8 21:14 Drug: TNK FOR STROKE - Tenecteplase IV (Administer 10 ml NS flush BEFORE and bm8 AFTER tenecteplase) 0.25 mg/kg IV at per protocol once; 0.25mg/kg, MAX DOSE 25 mg, IVP over 5 seconds {Co-Signature: al5 (Isadora Young RN).} Route: IV; Rate: per protocol; Site: left antecubital; 22:18 Follow up: Response: No adverse reaction; IV Status: Completed infusion; IV Intake: bm8 3.6ml 21:45 Drug: Ondansetron IVP 4 mg IVP once; over 2 minutes Route: IVP; Site: left antecubital; bm8 22:18 Follow up: Response: No adverse reaction bm8 22:18 Drug: foLIC Acid IVPB 1 mg IVPB once Route: IVPB; Site: left antecubital; bm8 23:16 Follow up: Response: No adverse reaction; IV Status: Completed infusion; IV Intake: [id number] Point of Care Testing: Blood Glucose: 21:02 Blood Glucose: 87 mg/dL; bm8 Ranges: Critical Glucose Levels:Adult <50 mg/dl or >400 mg/dl <40 mg/dl or >180 mg/dl Disposition Summary: 12/14/24 22:27 Transfer Ordered Notes: Transfer Location: [facility] rn Reason: Higher level of care rn Condition: Stable(12/14/24 22:27) rn Problem: new(12/14/24 22:27) rn Symptoms: have improved(12/14/24 22:27) rn Accepting Physician: (12/15/24 00:18) bm8 Diagnosis - Cerebral infarction, unspecified(12/14/24 22:27) rn Forms: - Medication Reconciliation Form rn - SBAR form international organizer time excluding procedures: 22:04 Critical care time: Bedside Care: 25 minutes, Consultation: 5 minutes, Family rn Intervention: 5 minutes. Total time: 35 minutes NIH Stroke Scale - NIH Stroke Score Date: 12/14/2024 Time: 20:40 Total Score = 0 10. Dysarthria (speech clarity - read or repeat words) - 0(Normal) 11. Extinction and Inattention (visual/tactile/auditory/spatial/personal) - 0(No abnormality) 1a. Level of Consciousness (LOC) - 0(Alert) 1b. Level of Consciousness (LOC) (Month \T\ Age) - 0(Both) 1c. LOC Commands (Open \T\ Closes Eyes/Cable Worker Helper) - 0(Both) 2. Best Gaze (Lateral Gaze Paresis) - 0(Normal) 3. Visual Field Loss - 0(No visual loss) 4. Facial Palsy - 0(Normal) 5a. Left Arm: Motor (10-second hold) - 0(No drift) 5b. Right Arm: Motor (10-second hold) - 0(No drift) 6a. Left Leg: Motor (5-second hold - always test supine) - 0(No drift) 6b. Right Leg: Motor (5-second hold - always test supine) - 0(No drift) 7. Limb Ataxia (finger/nose \T\ heel/cabrera - test with eyes open) - 0(Absent) 8. Sensory Loss (pinprick arms/legs/face) - 0(Normal) 9. Best Language: Aphasia (description/naming/reading) - 0(No aphasia) Initials: bm8 NIH Stroke Scale - NIH Stroke Score Date: 12/14/2024 Time: 20:47 Total Score = 0 10. Dysarthria (speech clarity - read or repeat words) - 0(Normal) 11. Extinction and Inattention (visual/tactile/auditory/spatial/personal) - 0(No abnormality) 1a. Level of Consciousness (LOC) - 0(Alert) 1b. Level of Consciousness (LOC) (Month \T\ Age) - 0(Both) 1c. LOC Commands (Open \T\ Closes Eyes/Cable Worker Helper) - 0(Both) 2. Best Gaze (Lateral Gaze Paresis) - 0(Normal) 3. Visual Field Loss - 0(No visual loss) 4. Facial Palsy - 0(Normal) 5a. Left Arm: Motor (10-second hold) - 0(No drift) 5b. Right Arm: Motor (10-second hold) - 0(No drift) 6a. Left Leg: Motor (5-second hold - always test supine) - 0(No drift) 6b. Right Leg: Motor (5-second hold - always test supine) - 0(No drift) 7. Limb Ataxia (finger/nose \T\ heel/cabrera - test with eyes open) - 0(Absent) 8. Sensory Loss (pinprick arms/legs/face) - 0(Normal) 9. Best Language: Aphasia (description/naming/reading) - 0(No aphasia) Initials: anuja NIH Stroke Scale - NIH Stroke Score Date: 12/14/2024 Time: 21:45 Total Score = 0 10. Dysarthria (speech clarity - read or repeat words) - 0(Normal) 11. Extinction and Inattention (visual/tactile/auditory/spatial/personal) - 0(No abnormality) 1a. Level of Consciousness (LOC) - 0(Alert) 1b. Level of Consciousness (LOC) (Month \T\ Age) - 0(Both) 1c. LOC Commands (Open \T\ Closes Eyes/Cable Worker Helper) - 0(Both) 2. Best Gaze (Lateral Gaze Paresis) - 0(Normal) 3. Visual Field Loss - 0(No visual loss) 4. Facial Palsy - 0(Normal) 5a. Left Arm: Motor (10-second hold) - 0(No drift) 5b. Right Arm: Motor (10-second hold) - 0(No drift) 6a. Left Leg: Motor (5-second hold - always test supine) - 0(No drift) 6b. Right Leg: Motor (5-second hold - always test supine) - 0(No drift) 7. Limb Ataxia (finger/nose \T\ heel/cabrera - test with eyes open) - 0(Absent) 8. Sensory Loss (pinprick arms/legs/face) - 0(Normal) 9. Best Language: Aphasia (description/naming/reading) - 0(No aphasia) Initials: 8 NIH Stroke Scale - NIH Stroke Score Date: 12/14/2024 Time: 22:00 Total Score = 0 10. Dysarthria (speech clarity - read or repeat words) - 0(Normal) 11. Extinction and Inattention (visual/tactile/auditory/spatial/personal) - 0(No abnormality) 1a. Level of Consciousness (LOC) - 0(Alert) 1b. Level of Consciousness (LOC) (Month \T\ Age) - 0(Both) 1c. LOC Commands (Open \T\ Closes Eyes/Cable Worker Helper) - 0(Both) 2. Best Gaze (Lateral Gaze Paresis) - 0(Normal) 3. Visual Field Loss - 0(No visual loss) 4. Facial Palsy - 0(Normal) 5a. Left Arm: Motor (10-second hold) - 0(No drift) 5b. Right Arm: Motor (10-second hold) - 0(No drift) 6a. Left Leg: Motor (5-second hold - always test supine) - 0(No drift) 6b. Right Leg: Motor (5-second hold - always test supine) - 0(No drift) 7. Limb Ataxia (finger/nose \T\ heel/cabrera - test with eyes open) - 0(Absent) 8. Sensory Loss (pinprick arms/legs/face) - 0(Normal) 9. Best Language: Aphasia (description/naming/reading) - 0(No aphasia) Initials: 8 NIH Stroke Scale - NIH Stroke Score Date: 12/14/2024 Time: 22:15 Total Score = 0 10. Dysarthria (speech clarity - read or repeat words) - 0(Normal) 11. Extinction and Inattention (visual/tactile/auditory/spatial/personal) - 0(No abnormality) 1a. Level of Consciousness (LOC) - 0(Alert) 1b. Level of Consciousness (LOC) (Month \T\ Age) - 0(Both) 1c. LOC Commands (Open \T\ Closes Eyes/Cable Worker Helper) - 0(Both) 2. Best Gaze (Lateral Gaze Paresis) - 0(Normal) 3. Visual Field Loss - 0(No visual loss) 4. Facial Palsy - 0(Normal) 5a. Left Arm: Motor (10-second hold) - 0(No drift) 5b. Right Arm: Motor (10-second hold) - 0(No drift) 6a. Left Leg: Motor (5-second hold - always test supine) - 0(No drift) 6b. Right Leg: Motor (5-second hold - always test supine) - 0(No drift) 7. Limb Ataxia (finger/nose \T\ heel/cabrera - test with eyes open) - 0(Absent) 8. Sensory Loss (pinprick arms/legs/face) - 0(Normal) 9. Best Language: Aphasia (description/naming/reading) - 0(No aphasia) Initials: [facility] NIH Stroke Scale - NIH Stroke Score Date: 12/14/2024 Time: 22:30 Total Score = 0 10. Dysarthria (speech clarity - read or repeat words) - 0(Normal) 11. Extinction and Inattention (visual/tactile/auditory/spatial/personal) - 0(No abnormality) 1a. Level of Consciousness (LOC) - 0(Alert) 1b. Level of Consciousness (LOC) (Month \T\ Age) - 0(Both) 1c. LOC Commands (Open \T\ Closes Eyes/Cable Worker Helper) - 0(Both) 2. Best Gaze (Lateral Gaze Paresis) - 0(Normal) 3. Visual Field Loss - 0(No visual loss) 4. Facial Palsy - 0(Normal) 5a. Left Arm: Motor (10-second hold) - 0(No drift) 5b. Right Arm: Motor (10-second hold) - 0(No drift) 6a. Left Leg: Motor (5-second hold - always test supine) - 0(No drift) 6b. Right Leg: Motor (5-second hold - always test supine) - 0(No drift) 7. Limb Ataxia (finger/nose \T\ heel/cabrera - test with eyes open) - 0(Absent) 8. Sensory Loss (pinprick arms/legs/face) - 0(Normal) 9. Best Language: Aphasia (description/naming/reading) - 0(No aphasia) Initials: bm8 NIH Stroke Scale - NIH Stroke Score Date: 12/14/2024 Time: 22:45 Total Score = 0 10. Dysarthria (speech clarity - read or repeat words) - 0(Normal) 11. Extinction and Inattention (visual/tactile/auditory/spatial/personal) - 0(No abnormality) 1a. Level of Consciousness (LOC) - 0(Alert) 1b. Level of Consciousness (LOC) (Month \T\ Age) - 0(Both) 1c. LOC Commands (Open \T\ Closes Eyes/Cable Worker Helper) - 0(Both) 2. Best Gaze (Lateral Gaze Paresis) - 0(Normal) 3. Visual Field Loss - 0(No visual loss) 4. Facial Palsy - 0(Normal) 5a. Left Arm: Motor (10-second hold) - 0(No drift) 5b. Right Arm: Motor (10-second hold) - 0(No drift) 6a. Left Leg: Motor (5-second hold - always test supine) - 0(No drift) 6b. Right Leg: Motor (5-second hold - always test supine) - 0(No drift) 7. Limb Ataxia (finger/nose \T\ heel/cabrera - test with eyes open) - 0(Absent) 8. Sensory Loss (pinprick arms/legs/face) - 0(Normal) 9. Best Language: Aphasia (description/naming/reading) - 0(No aphasia) Initials: [facility] NIH Stroke Scale - NIH Stroke Score Date: 12/14/2024 Time: 23:00 Total Score = 0 10. Dysarthria (speech clarity - read or repeat words) - 0(Normal) 11. Extinction and Inattention (visual/tactile/auditory/spatial/personal) - 0(No abnormality) 1a. Level of Consciousness (LOC) - 0(Alert) 1b. Level of Consciousness (LOC) (Month \T\ Age) - 0(Both) 1c. LOC Commands (Open \T\ Closes Eyes/Cable Worker Helper) - 0(Both) 2. Best Gaze (Lateral Gaze Paresis) - 0(Normal) 3. Visual Field Loss - 0(No visual loss) 4. Facial Palsy - 0(Normal) 5a. Left Arm: Motor (10-second hold) - 0(No drift) 5b. Right Arm: Motor (10-second hold) - 0(No drift) 6a. Left Leg: Motor (5-second hold - always test supine) - 0(No drift) 6b. Right Leg: Motor (5-second hold - always test supine) - 0(No drift) 7. Limb Ataxia (finger/nose \T\ heel/cabrera - test with eyes open) - 0(Absent) 8. Sensory Loss (pinprick arms/legs/face) - 0(Normal) 9. Best Language: Aphasia (description/naming/reading) - 0(No aphasia) Initials: 8 NIH Stroke Scale - NIH Stroke Score Date: 12/14/2024 Time: 23:15 Total Score = 0 10. Dysarthria (speech clarity - read or repeat words) - 0(Normal) 11. Extinction and Inattention (visual/tactile/auditory/spatial/personal) - 0(No abnormality) 1a. Level of Consciousness (LOC) - 0(Alert) 1b. Level of Consciousness (LOC) (Month \T\ Age) - 0(Both) 1c. LOC Commands (Open \T\ Closes Eyes/Cable Worker Helper) - 0(Both) 2. Best Gaze (Lateral Gaze Paresis) - 0(Normal) 3. Visual Field Loss - 0(No visual loss) 4. Facial Palsy - 0(Normal) 5a. Left Arm: Motor (10-second hold) - 0(No drift) 5b. Right Arm: Motor (10-second hold) - 0(No drift) 6a. Left Leg: Motor (5-second hold - always test supine) - 0(No drift) 6b. Right Leg: Motor (5-second hold - always test supine) - 0(No drift) 7. Limb Ataxia (finger/nose \T\ heel/cabrera - test with eyes open) - 0(Absent) 8. Sensory Loss (pinprick arms/legs/face) - 0(Normal) 9. Best Language: Aphasia (description/naming/reading) - 0(No aphasia) Initials: 8 NIH Stroke Scale - NIH Stroke Score Date: 12/14/2024 Time: 23:45 Total Score = 0 10. Dysarthria (speech clarity - read or repeat words) - 0(Normal) 11. Extinction and Inattention (visual/tactile/auditory/spatial/personal) - 0(No abnormality) 1a. Level of Consciousness (LOC) - 0(Alert) 1b. Level of Consciousness (LOC) (Month \T\ Age) - 0(Both) 1c. LOC Commands (Open \T\ Closes Eyes/Cable Worker Helper) - 0(Both) 2. Best Gaze (Lateral Gaze Paresis) - 0(Normal) 3. Visual Field Loss - 0(No visual loss) 4. Facial Palsy - 0(Normal) 5a. Left Arm: Motor (10-second hold) - 0(No drift) 5b. Right Arm: Motor (10-second hold) - 0(No drift) 6a. Left Leg: Motor (5-second hold - always test supine) - 0(No drift) 6b. Right Leg: Motor (5-second hold - always test supine) - 0(No drift) 7. Limb Ataxia (finger/nose \T\ heel/cabrera - test with eyes open) - 0(Absent) 8. Sensory Loss (pinprick arms/legs/face) - 0(Normal) 9. Best Language: Aphasia (description/naming/reading) - 0(No aphasia) Initials: bm8 NIH Stroke Scale - NIH Stroke Score Date: 12/15/2024 Time: 00:12 Total Score = 0 10. Dysarthria (speech clarity - read or repeat words) - 0(Normal) 11. Extinction and Inattention (visual/tactile/auditory/spatial/personal) - 0(No abnormality) 1a. Level of Consciousness (LOC) - 0(Alert) 1b. Level of Consciousness (LOC) (Month \T\ Age) - 0(Both) 1c. LOC Commands (Open \T\ Closes Eyes/Cable Worker Helper) - 0(Both) 2. Best Gaze (Lateral Gaze Paresis) - 0(Normal) 3. Visual Field Loss - 0(No visual loss) 4. Facial Palsy - 0(Normal) 5a. Left Arm: Motor (10-second hold) - 0(No drift) 5b. Right Arm: Motor (10-second hold) - 0(No drift) 6a. Left Leg: Motor (5-second hold - always test supine) - 0(No drift) 6b. Right Leg: Motor (5-second hold - always test supine) - 0(No drift) 7. Limb Ataxia (finger/nose \T\ heel/cabrera - test with eyes open) - 0(Absent) 8. Sensory Loss (pinprick arms/legs/face) - 0(Normal) 9. Best Language: Aphasia (description/naming/reading) - 0(No aphasia) Initials: bm8 Signatures: Dispatcher [employer] EDFredrick Castillo MD MD rn Martinez, Clarissa RN RN cm10 Marshall Alvarez RN RN bm8 Isadora Young RN al5 Corrections: (The following items were deleted from the chart) 20:47 20:46 NIHSS Score: 0 rn rn : 22:07 Inpatient Admission rn rn 22:07 Mindy Redd rn rn 22:07 Intensive Care Unit rn rn : 22:07 Stable rn rn : 22:07 new rn rn : 22:07 have improved rn rn : 22:07 Standard rn rn : 22:07 rn rn : 22:07 Cerebral infarction, unspecified rn rn 12/15 00:18 02 22:27 rn bm8
[2024-12-14] MEDS ORDERED: FOLIC ACID 5 MG/ML VIAL ONE (22:21)
[2024-12-15 00:29] VITALS: TEMP 97
[2024-12-15 00:43] VITALS: BP 137/72; O2SAT 96
--- NOTE | 2024-12-15 11:26 | EKG ---
Test Date: 2024-12-14 Test Time: 20:29:10 Equine Vet: CRISTHIAN MEASUREMENT RESULTS: Intervals: Rate: 71 [place]: 188 QRSD: 88 QT: 430 QTc: 467 [place]: P: 102 [place]: 188 QRS: -17 T: 82 INTERPRETIVE STATEMENTS: Normal sinus rhythm Normal ECG Compared to ECG 10/19/2005 07:57:00 Sinus bradycardia no longer present Electronically Signed On 12-15-24 11:24:36 IRON CARRIER by Dev Raines
--- NOTE | 2024-12-16 13:42 | EKG ---
Test Date: 2024-12-14 Test Time: 22:09:43 Margarine Churn Operator: MAHOGANY MEASUREMENT RESULTS: Intervals: Rate: 74 [place]: 204 QRSD: 82 QT: 438 QTc: 486 [place]: P: 78 [place]: 204 QRS: -24 T: 81 INTERPRETIVE STATEMENTS: Normal sinus rhythm Normal ECG Compared to ECG 12/14/2024 20:29:10 No significant changes Electronically Signed On 12-16-24 13:38:53 LOADER OPERATOR by Mono Olivera
== END 2024-12-15 00:18 | disposition short-term general hospital (02) ==
LOC: ER 20:25
DX: I63.9 Cerebral infarction, unspecified (principal); R29.700 NIHSS score 0; Z86.73 Personal history of transient ischemic attack (TIA), and cerebral infarction without residual deficits; Z79.82 Long term (current) use of aspirin
CPT/HCPCS: 92977; 93005 ×2; 85025; 80048; 36415; 85610; 82565; 82947; 85730; 84484; 70496; 70498; 70450; 71045; 51702; 99291; Q9967; J3101; J2405